=== PATIENT | male | born 1985 | race Caucasian/White ===

== ENCOUNTER 2016-04-04 19:28 | Emergency (ER) | payer BC ==
[~2016-04-04] VITALS: Ht 190.5 cm; Wt 79.5 kg
[2016-04-04 21:43] VITALS: BP 129/82; PULSE 93; TEMP 98.5
== END 2016-04-04 21:44 | disposition home or self-care (01) ==
LOC: COL.ER 19:28
DX: S06.0X9A Concussion with loss of consciousness of unspecified duration, initial encounter (principal); S50.812A Abrasion of left forearm, initial encounter; S70.212A Abrasion, left hip, initial encounter; S16.1XXA Strain of muscle, fascia and tendon at neck level, initial encounter; V28.4XXA Motorcycle driver injured in noncollision transport accident in traffic accident, initial encounter